=== PATIENT | male | born 1950 | race Hispanic/Latino ===

== ENCOUNTER 2018-01-01 06:06 | Day surgery (SDC) | payer MEDICARE, MEDICAID ==
[2017-12-12 13:23] VITALS: BMI 25.0
[2018-01-01] MEDS ORDERED: Propofol 10 mg/ml Inj (20 ML) ONE (07:09)
[2018-01-01] MEDS ORDERED: ePHEDrine 50 mg/ml Inj ONE (07:09)
[2018-01-01] MEDS ORDERED: Rocuronium 10 mg/ml (5 ml) ONE (07:10)
[2018-01-01] MEDS ORDERED: Succinylcholine 200 mg/10 ml Inj IV ONE (07:10)
[2018-01-01] MEDS ORDERED: Midazolam 2 MG/2 ML VIAL ONE (07:10)
[2018-01-01] MEDS ORDERED: Phenylephrine 10 mg/ml Inj ONE (07:10)
[2018-01-01] MEDS ORDERED: Bupivacaine HCl 0.5% PF (10 ml) Inj ONE (07:27)
[2018-01-01] MEDS ORDERED: Clindamycin 600mg/50ml NS 600 MG/50 ML BAG IVPB ONE (07:27)
[2018-01-01] MEDS ORDERED: Lactated Ringer's 1,000 ML IV ONE (07:45)
[2018-01-01] MEDS ORDERED: Lactated Ringer's 500 ML IV ONE ×2 (08:53→11:18)
--- NOTE | 2018-01-01 09:19 | CARD ---
APPROVED REPORT EKG Measurement Heart [id number] <Conclusion> Normal sinus rhythm Normal ECG
[2018-01-01] MEDS ORDERED: Morphine 1 mg/ml preservative-free Inj(Duramorph) ONE (10:00)
[2018-01-01] MEDS ORDERED: HYDROmorphone 0.5 mg/0.5 ml ISec IVP PRN (10:19)
[2018-01-01] MEDS ORDERED: HYDROmorphone 0.5 mg/0.5 ml ISec ONE (10:41)
--- NOTE | 2018-01-01 12:33 | PCM.SURG1 ---
Surgeon's Initial Post Op Note - Surgeon's Notes Surgeon: Nabeel Nunez Client Development Manager: None Type of Anesthesia: General Endo Anesthesia Administered By: Frances Pre-Operative Diagnosis: bilateral inguinal hernia Operative Findings: bilateral wide necked sacs at upper edge of internal inguinal ring with cord lipomas Post-Operative Diagnosis: right and left inguinal hernia Operation Performed: right inguinal hernia repair, left inguinal hernia epair Specimen/Specimens Removed: left cord lipoma, right hernia sac Estimated Blood Loss: EBL {In ML}: 30 Blood Products Given: N/A Drains Used: No Drains Post-Op Condition: Good Date of Surgery/Procedure: 01/01/18 Time of Surgery/Procedure: 12:33
--- NOTE | 2018-01-01 12:48 | CP.SDSHP ---
Same Day Surgery H & P - Allergies Allergies: Allergies Penicillins Allergy (Verified 12/12/17 13:24) RASH - Physical Exam Vital Signs: Vital Signs 01/01/18 01/01/18 07:00 10:10 Temperature 98.3 F 96.1 F L Pulse Rate 76 87 Respiratory 18 18 Rate Blood Pressure 134/75 149/98 H O2 Sat by Pulse 99 99 Oximetry Short Stay Discharge - Short Stay Discharge Admitting Diagnosis/Reason for Visit: K40.90 Disposition: HOME/ ROUTINE Medications: Ibuprofen [Motrin] 400 mg PO Q6 #30 tab oxyCODONE/Acetaminophen [Percocet 5/325 mg Tab] 1 ea PO Q4 PRN #20 tab PRN Reason: Pain, Moderate (4-7) Referrals: Ptaricio Murray DO [Primary Care Provider] - Follow-up: Dr Nunez one week Additional Instructions (Diet, Activity): Avoid constipation. No heavy lifting. May remove dressings in 2-3 days and shower; apply dry dressing prn
[2018-01-01 13:54] VITALS: O2SAT 96
[2018-01-01 14:50] VITALS: BP 135/83; PULSE 76; RESP 18; TEMP 97.3
--- NOTE | 2018-01-02 00:36 | OP ---
PROCEDURE DATE: 01/01/2018 SURGEON: Shannan Nunez MD ANESTHESIA: General. Dr. Daniels. PREOPERATIVE DIAGNOSIS: Right and left inguinal hernia. POSTOPERATIVE DIAGNOSIS: Right and left inguinal hernia. PROCEDURE: Right and left inguinal hernia repair. DESCRIPTION OF OPERATION: With the patient in the supine position, the lower abdomen and groins were prepped and draped in the usual sterile manner. The patient was more symptomatic on the left side, and a left sloping incision was made in the upper groin crease, taken down through the subcutaneous tissue. There was marked thinning of the external oblique layer with fatty bulging noted throughout and the external oblique was opened to the level of the internal inguinal ring, and the spermatic cord was dissected as it passed over the area of the pubic tubercle. There was noted to be a fatty mass traveling with the spermatic cord, and this was dissected back to the area of the internal inguinal ring and was noted to be a moderately large sized lipoma of the cord. This was clamped and excised and ligated with a 3-0 Vicryl tie. When this had been removed, there was noted to be a bulbous swelling emanating from beneath the transversalis fascia at the level of the internal inguinal ring, felt to represent a hernia sac. As this was quite widely appeared to have a wide neck, it was freed from all surrounding structures and reduced up back into the abdomen beneath the transversalis without opening it. A size extra large ProLoop plug was then positioned to maintain the reduction and was sutured in positioned beneath the transversalis fascia in order to cover the defect well and maintain the reduction. When this had been completed, the flat portion of the mesh patch was trimmed to cover the inguinal floor and was sutured medially at the pubic tubercle to the transversalis muscle layer with sutures taken inferiorly to the attenuated shelving edge of the inguinal ligament, and the tails approximated laterally beyond the internal ring and the body of the mesh positioned beneath the spermatic cord, sutured with 2-0 Prolene interrupted sutures. This was noted to maintain good reduction of the hernia. The spermatic cord itself was noted to be relatively narrow without evidence of an indirect hernia sac. The external oblique was then reapproximated over the spermatic cord using running suture of 0 Vicryl. Subcutaneous tissues were approximated with 3-0 Vicryl interrupted sutures and skin closure was performed with roz. Attention was then turned to the right groin where again a slanting incision was made following the right upper groin crease, taken down through the subcutaneous tissue. The external oblique on this side was slightly better defined, and it was opened following its fibers from the internal inguinal ring to the external inguinal ring. The spermatic cord on the side as well was relatively narrow with the exception of a lipomatous mass which followed the course of the spermatic cord but appeared to originate outside the cremaster and this was dissected back to the internal inguinal ring where it was suture ligated and excised as a specimen. The internal ring was enlarged with bulging noted, coming from beneath the transversalis level and bulging downward. A size small ProLoop plug was used beneath the spermatic cord and positioned within the internal ring to maintain this reduction, and it was sutured beneath the transversalis level. The patch was then positioned beneath the spermatic cord and sutured medially to the area of the pubic tubercle and inferiorly to the shelving edge of the inguinal ligament. Superior sutures of 2-0 Prolene were fixed to the transversalis fascia with extra closure of the internal ring with two of the previously placed 2-0 Prolene sutures which had been used to fix the plug in place. When this had been completed, the operative site was examined for hemostasis. The external oblique was reapproximated with 0 Vicryl running suture. Subcutaneous tissues approximated with 3-0 Vicryl interrupted sutures and the skin was closed with roz. Dry sterile dressings were applied. The patient tolerated the procedure well and transferred to recovery room in stable condition. Estimated blood loss for the procedure was 30 mL. Shannan Nunez MD
== END 2018-01-01 16:25 | disposition home or self-care (01) ==
LOC: H.OPSURG 06:06
PROVIDERS: ATTEND Specialist
DX: K40.20 Bilateral inguinal hernia, without obstruction or gangrene, not specified as recurrent (principal); D17.6 Benign lipomatous neoplasm of spermatic cord; Z88.0 Allergy status to penicillin
CPT/HCPCS: 49505; 82948; 88302; 88305; 93005; C1781; J0330; J1170; J1885; J2001; J2250; J2270; J2370; J2704; J2765; J3010; J7030; J7120